=== PATIENT | female | born 1970 | race Hispanic/Latino ===

== ENCOUNTER 2017-05-19 05:52 | Inpatient (IN) | payer MEDICAID ==
[2017-05-14 10:55] VITALS: BMI 29.1
[2017-05-19] MEDS ORDERED: Lactated Ringer's 1,000 ML IV ONE ×2 (06:50→09:30)
[2017-05-19] MEDS ORDERED: Midazolam 2 MG/2 ML VIAL ONE (07:45)
[2017-05-19] MEDS ORDERED: Propofol 10 mg/ml Inj (20 ML) ONE (07:45)
[2017-05-19] MEDS ORDERED: Rocuronium 10 mg/ml (5 ml) ONE (07:46)
[2017-05-19] MEDS ORDERED: HYDROmorphone 0.5 mg/0.5 ml ISec IVP PRN (08:06)
[2017-05-19] MEDS ORDERED: Vasopressin 20 Units/ml Inj ONE (08:08)
--- NOTE | 2017-05-19 08:12 | CP.PCM.HP ---
History of Present Illness - History of Present Illness History of Present Illness: 47yo female with long history of symptomatic fibroid uterus. Uterus ~26-28wk size. After office evaluation and discussion of options, patient opting for removal of uterus. Discussed with patient the R/B/A of surgery and patient consented for STONE. All patient questions answered. Pt without complaints at this time. Present on Admission - Present on Admission Any Indicators Present on Admission: No History of DVT/PE: No History of Uncontrolled Diabetes: No Urinary Catheter: No Decubitus Ulcer Present: No Past Patient History - Past Medical History & Family History Past Medical History?: Yes - Past Social History Smoking Status: Never Smoked - CARDIAC Hx Cardiac Disorders: No - PULMONARY Hx Respiratory Disorders: No - NEUROLOGICAL Hx Neurological Disorder: No - HEENT Hx HEENT Problems: No - RENAL Hx Chronic Kidney Disease: No - ENDOCRINE/METABOLIC Hx Endocrine Disorders: Yes Hx Hypothyroidism: Yes - HEMATOLOGICAL/ONCOLOGICAL Hx Blood Disorders: Yes Hx Anemia: Yes - INTEGUMENTARY Hx Dermatological Problems: No - MUSCULOSKELETAL/RHEUMATOLOGICAL Hx Musculoskeletal Disorders: No - GASTROINTESTINAL Hx Gastrointestinal Disorders: Yes Hx Gastritis: Yes - GENITOURINARY/GYNECOLOGICAL Hx Genitourinary Disorders: No - PSYCHIATRIC Hx Psychophysiologic Disorder: No - SURGICAL HISTORY Hx Surgeries: No - ANESTHESIA Hx Anesthesia: No Hx Anesthesia Reactions: No Hx Malignant Hyperthermia: No Has any member of the family had a problem w/ anesthesia?: No Meds Allergies/Adverse Reactions: Allergies Allergy/AdvReac Type Severity Reaction Status Date / Time No Known Allergies Allergy Verified 05/14/17 09:08 Physical Exam - Constitutional Appears: Well, No Acute Distress - Head Exam Head Exam: ATRAUMATIC - Eye Exam Eye Exam: Normal appearance, PERRL - ENT Exam ENT Exam: Mucous Membranes Moist - Neck Exam Neck exam: Positive for: Normal Inspection - Respiratory Exam Respiratory Exam: Clear to Auscultation Bilateral, NORMAL BREATHING PATTERN - Cardiovascular Exam Cardiovascular Exam: REGULAR RHYTHM - GI/Abdominal Exam GI & Abdominal Exam: Normal Bowel Sounds Additional comments: Soft/NT/ND. Uterus palpable above umbilicus. - Extremities Exam Extremities exam: Positive for: normal inspection. Negative for: calf tenderness, pedal edema Results - Vital Signs Recent Vital Signs: Last Vital Signs Temp 98.5 F 05/19/17 06:25 Pulse 61 05/19/17 06:28 Resp 18 05/19/17 06:25 BP 134/51 L 05/19/17 06:25 Pulse Ox 99 05/19/17 06:25 - Imaging and Cardiology Venous US Status: Image reviewed by me, Report reviewed by me Assessment & Plan - Assessment and Plan (Free Text) Assessment: Symptomatic fibroid uterus Plan: As Above. Routine postop observation and care. - Date & Time Date: 05/19/17 Time: 08:13
[2017-05-19] MEDS ORDERED: Dexamethasone 4 mg/1 ml ONE (08:31)
[2017-05-19] MEDS ORDERED: ePHEDrine 50 mg/ml Inj ONE (08:41)
[2017-05-19] MEDS ORDERED: Neostigmine Methylsulfate 3mg/3ml Syringe IV ONE (08:44)
[2017-05-19] MEDS ORDERED: Neostigmine Methylsulfate 2 MG/2 ML ML IV ONE (08:44)
--- NOTE | 2017-05-19 10:44 | PCM.SURG1 ---
Surgeon's Initial Post Op Note - Surgeon's Notes Surgeon: Dr. Felder Manager Talent Management: Pj Rose PGY2 Type of Anesthesia: General Endo Pre-Operative Diagnosis: Uterine Fibroids Operative Findings: Large uterin fibroid Post-Operative Diagnosis: Same Operation Performed: Total abdominal hysterectomy, b/l salphingectomy Specimen/Specimens Removed: Uterus, fibroids, cervix, fallopean tubes b/l Estimated Blood Loss: EBL {In ML}: 100 Blood Products Given: N/A Drains Used: No Drains Post-Op Condition: Good Date of Surgery/Procedure: 05/19/17 Time of Surgery/Procedure: 10:45
[2017-05-19] MEDS: HYDROmorphone 0.5 mg/0.5 ml ISec IVP PRN ×5 (10:45→12:36)
[2017-05-19] MEDS: Lactated Ringer's 1,000 ML IV SCH ×2 (14:34→21:56)
[2017-05-19] MEDS: Oxycodone/Acetaminophen 5/325 mg Tab PO PRN ×2 (17:54→21:54)
--- NOTE | 2017-05-20 02:00 | OP ---
PROCEDURE DATE: 05/19/2017 PREOPERATIVE DIAGNOSIS: Symptomatic fibroid uterus. POSTOPERATIVE DIAGNOSIS: Symptomatic fibroid uterus. OPERATION PERFORMED: Total abdominal hysterectomy, bilateral salpingectomy. OPERATIVE FINDINGS: Fibroid uterus approximately 24 to 20 weeks size, normal tubes and ovaries bilaterally. SURGEON: Hira Felder MD. BATTERY CHARGER TESTER: Dr. Sunita Calix. Dr. Calix was present from the beginning of the procedure to the end of procedure. Dr. Calix was integral in exposing the surgical field, and controlling intraoperative bleeding, and surgical removal of the uterus. ANESTHESIA: General. ANESTHESIOLOGIST: Dr. Pikcett. ESTIMATED BLOOD LOSS: 200 mL. FLUIDS: 1200 mL Lactated Ringer's. URINE OUTPUT: 150 mL of clear urine at the end of procedure. PROCEDURE PERFORMED: The patient was taken to the operating room, where general anesthesia was found to be adequate. The patient was prepped and draped in normal sterile fashion in the dorsal lithotomy position. A Pfannenstiel skin incision was made with scalpel. This was carried down through to the underlying layer of fascia with the scalpel. Midline dissection was made in fascial layer with the scalpel. The fascial incision was then extended bilaterally with curved Grider scissors. The fascial layer was from the underlying rectus muscles both bluntly and sharply with curved Grider scissors. The rectus muscles were at the midline. The peritoneum was then identified, tented up with Stella clamps x2, entered sharply with Metzenbaum scissors. This peritoneal incision was then extended superiorly and inferiorly with the good visualization of the urinary bladder. The abdomen and pelvis were explored and the above findings noted. The uterus was exteriorized. The round ligaments were isolated bilaterally, electrocauterized and transected with LigaSure device bilaterally. The anterior surface of the broad ligament was sharply dissected off the anterior surface of the uterus. The fallopian tubes and suspensory ligaments of the ovaries were isolated bilaterally, electrocauterized and transected bilaterally. The uterine arteries were skeletonized and isolated bilaterally, clamped with Susan clamps x2 bilaterally, transected bilaterally, suture ligated with 0 Vicryl x2 bilaterally. A releasing bite to remove the cardinal ligament was performed on the uterus bilaterally. Phaneuf clamp was placed on the cervix bilaterally, the ligament was transected off the cervix bilaterally, suture ligated with 0 Vicryl bilaterally. The cervix was clamped with Susan clamps bilaterally, and the cervix was removed from the posterior aspect of the vagina. The specimen was sent to pathology. The vaginal cuff was suture ligated with a series of [id number] stitches with 0 Vicryl. The fallopian tubes were removed from the ovaries bilaterally. This was completed with LigaSure device via electrocautery and transection. The fallopian tubes were sent as well to pathology. The abdomen and pelvis were irrigated with copious amounts of warm normal saline. Reinspection of all surgical pedicles proved hemostasis. All instruments were removed from the patient. The peritoneal layer was closed with a running stitch of 2-0 chromic. The rectus muscles were reapproximated with a running stitch of 2-0 chromic. The fascial layer was closed with a running stitch of 0 Vicryl. Subcutaneous tissue was closed with a running stitch of 3-0 plain. The skin was closed with subcutaneous stitch of 3-0 Vicryl. The patient tolerated the procedure well. All sponge, lap, and needle counts were correct x2. The patient was given 2 g of Ancef just prior to the beginning of the procedure. There were no complications. The patient was taken to recovery room in awake and stable condition. Hira Felder MD cc:
[2017-05-20] MEDS: Oxycodone/Acetaminophen 5/325 mg Tab PO PRN ×4 (03:37→22:14)
[2017-05-20] MEDS: Lactated Ringer's 1,000 ML IV SCH ×2 (06:12→20:08)
[2017-05-20 08:00] LABS: BASO % 0.2 % (0.0-2.0); EOS % 0.2 % (0.0-4.0); HEMATOCRIT 30.2 % (34.0-47.0); LYMPH # 1.8 K/uL (1.0-4.3); LYMPH % 21.1 % (20.0-40.0); MEAN CELL VOLUME 80.1 fl (81.0-99.0); MEAN CORPUSCULAR HEMOGLOBIN 25.8 pg (27.0-31.0); MEAN CORPUSCULAR HGB CONC 32.3 g/dL (33.0-37.0); MEAN PLATELET VOLUME 7.7 fl (7.2-11.7); MONO # 0.7 K/uL (0.0-0.8); MONO % 8.2 % (0.0-10.0); NEUT # 6.1 K/uL (1.8-7.0); NEUT % 70.3 % (50.0-75.0); RED CELL DISTRIBUTION WIDTH 23.5 % (11.5-14.5); WHITE BLOOD COUNT 8.7 K/uL (4.8-10.8)
[2017-05-20] MEDS: Enoxaparin 40 mg Syringe SC SCH (09:05)
[2017-05-20] MEDS: Levothyroxine 50 MCG TAB PO SCH (15:20)
--- NOTE | 2017-05-20 16:27 | CP.PCM.PN ---
Subjective - Date & Time of Evaluation Date of Evaluation: 05/20/17 Time of Evaluation: 16:24 - Subjective Subjective: Patient without complaints. Patient reports pain well controlled. Patient denies any nausea or vomiting, chest pain or shortness of breath, fevers or chills. Patient tolerating small amounts of solid foods. Patient reports urinating without complications.. Objective - Vital Signs/Intake and Output Vital Signs (last 24 hours): Temp Pulse Resp BP Pulse Ox 98.6 F 60 20 127/58 L 97 05/20/17 15:58 05/20/17 15:58 05/20/17 15:58 05/20/17 15:58 05/20/17 15:58 Intake and Output: 05/20/17 05/20/17 06:59 18:59 Intake Total 2000 Output Total 2380 Balance -380 - Medications Medications: Current Medications Cholecalciferol (Vitamin D) 1,000 iu PO DAILY [facility] Enoxaparin Sodium (Lovenox) 40 mg SC DAILY [facility] PRN Reason: Protocol Last Admin: 05/20/17 09:05 Dose: 40 mg Ferrous Sulfate (Feosol) 325 mg PO DAILY@1500 PAULIE Last Admin: 05/20/17 15:20 Dose: 325 mg Home Med (Cyanocobalamin [Vitamin B12 100 Mcg Tab]) 100 mcg PO DAILY [facility] Lactated Ringer's (Lactated Ringer's) 1,000 mls @ 55 mls/hr IV .[id number] [facility] Lactated Ringer's (Lactated Ringer's) 1,000 mls @ 125 mls/hr IV .Q8H [facility] Last Admin: 05/20/17 06:12 Dose: 125 mls/hr Ibuprofen (Motrin Tab) 600 mg PO Q6 PRN PRN Reason: Pain, moderate (4-7) Last Admin: 05/20/17 06:07 Dose: 600 mg Levothyroxine Sodium (Synthroid) 50 mcg PO ACB [facility] Last Admin: 05/20/17 15:20 Dose: 50 mcg Ondansetron HCl (Zofran Inj) 4 mg IVP ONCE PRN PRN Reason: Nausea/Vomiting Oxycodone/Acetaminophen (Percocet 5/325 Mg Tab) 2 tab PO Q4 PRN PRN Reason: Pain, severe (8-10) Stop: 08/25/17 10:39 Last Admin: 05/20/17 10:37 Dose: 2 tab - Labs Labs: 05/20/17 07:00 - Constitutional Appears: Well, No Acute Distress - Head Exam Head Exam: ATRAUMATIC - ENT Exam ENT Exam: Mucous Membranes Moist - GI/Abdominal Exam Additional comments: Abdomen soft, nontender, nondistended. Incision clean, dry, intact. No erythema, swelling, induration Assessment and Plan - Assessment and Plan (Free Text) Assessment: Postop day #1 status post total abdominal hysterectomy, bilateral salpingectomy. Patient recovering well Plan: Pain control Out of bed, ambulate Adame out, which check Incentive spirometer Venodyne's while in bed, Lovenox for DVT prophylaxis Advance diet as tolerated
[2017-05-21] MEDS: Lactated Ringer's 1,000 ML IV SCH ×2 (03:54→04:30)
[2017-05-21] MEDS: Levothyroxine 50 MCG TAB PO SCH (06:55)
--- NOTE | 2017-05-21 09:26 | CP.PCM.PN ---
Subjective - Date & Time of Evaluation Date of Evaluation: 05/21/17 Time of Evaluation: 09:24 - Subjective Subjective: Pt without complaints. Pain well controlled. Ambulating well. Tolerating regular diet. Voiding without problems. Objective - Vital Signs/Intake and Output Vital Signs (last 24 hours): Temp Pulse Resp BP Pulse Ox 99 F 63 20 108/60 97 05/21/17 05:00 05/21/17 05:00 05/21/17 05:00 05/21/17 05:00 05/21/17 05:00 Intake and Output: 05/21/17 05/21/17 06:59 18:59 Intake Total 1700 Output Total 0 Balance 1700 - Medications Medications: Current Medications Cholecalciferol (Vitamin D) 1,000 iu PO DAILY [facility] Enoxaparin Sodium (Lovenox) 40 mg SC DAILY [facility] PRN Reason: Protocol Last Admin: 05/20/17 09:05 Dose: 40 mg Ferrous Sulfate (Feosol) 325 mg PO DAILY@1500 PAULIE Last Admin: 05/20/17 15:20 Dose: 325 mg Home Med (Cyanocobalamin [Vitamin B12 100 Mcg Tab]) 100 mcg PO DAILY [facility] Lactated Ringer's (Lactated Ringer's) 1,000 mls @ 55 mls/hr IV .[id number] [facility] Last Admin: 05/20/17 20:08 Dose: 55 mls/hr Lactated Ringer's (Lactated Ringer's) 1,000 mls @ 125 mls/hr IV .Q8H [facility] Last Admin: 05/21/17 04:30 Dose: 125 mls/hr Ibuprofen (Motrin Tab) 600 mg PO Q6 PRN PRN Reason: Pain, moderate (4-7) Last Admin: 05/21/17 05:25 Dose: 600 mg Levothyroxine Sodium (Synthroid) 50 mcg PO ACB [facility] Last Admin: 05/21/17 06:55 Dose: 50 mcg Ondansetron HCl (Zofran Inj) 4 mg IVP ONCE PRN PRN Reason: Nausea/Vomiting Oxycodone/Acetaminophen (Percocet 5/325 Mg Tab) 2 tab PO Q4 PRN PRN Reason: Pain, severe (8-10) Stop: 05/22/17 10:39 Last Admin: 05/20/17 22:14 Dose: 2 tab - Labs Labs: 05/20/17 07:00 - Constitutional Appears: Well, No Acute Distress - Head Exam Head Exam: NORMAL INSPECTION - Eye Exam Eye Exam: Normal appearance, PERRL - ENT Exam ENT Exam: Mucous Membranes Moist - Respiratory Exam Respiratory Exam: Clear to Ausculation Bilateral, NORMAL BREATHING PATTERN - Cardiovascular Exam Cardiovascular Exam: REGULAR RHYTHM - GI/Abdominal Exam Additional comments: Soft/NT/ND, Inc C/D/I, no erythema, swelling, induration. Normal BS - Extremities Exam Extremities Exam: Normal Inspection. absent: Calf Tenderness, Pedal Edema Assessment and Plan - Assessment and Plan (Free Text) Assessment: POD #2 s/p STONE -- recovering well Plan: D/C home with postop instructions. F/U 1wk in office
--- NOTE | 2017-05-21 09:28 | CP.PCM.DIS ---
Provider - Provider Date of Admission: 05/19/17 10:38 Attending physician: Hira Felder MD Primary care physician: Cara Sinha MD Time Spent in preparation of Discharge (in minutes): 10 Diagnosis - Discharge Diagnosis (1) Fibroid uterus Status: Acute Hospital Course - Lab Results Lab Results: Most Recent Lab Values WBC 8.7 K/uL (4.8-10.8) D 05/20/17 07:00 RBC 3.77 Mil/uL (3.80-5.20) L 05/20/17 07:00 Hgb 9.7 g/dL (12.0-16.0) L 05/20/17 07:00 Hct 30.2 % (34.0-47.0) L 05/20/17 07:00 MCV 80.1 fl (81.0-99.0) L 05/20/17 07:00 MCH 25.8 pg (27.0-31.0) L 05/20/17 07:00 MCHC 32.3 g/dL (33.0-37.0) L 05/20/17 07:00 RDW 23.5 % (11.5-14.5) H 05/20/17 07:00 Plt Count 221 K/uL (130-400) 05/20/17 07:00 MPV 7.7 fl (7.2-11.7) 05/20/17 07:00 Neut % (Auto) 70.3 % (50.0-75.0) 05/20/17 07:00 Lymph % (Auto) 21.1 % (20.0-40.0) 05/20/17 07:00 Barnes % (Auto) 8.2 % (0.0-10.0) 05/20/17 07:00 Eos % (Auto) 0.2 % (0.0-4.0) 05/20/17 07:00 Baso % (Auto) 0.2 % (0.0-2.0) 05/20/17 07:00 Neut # 6.1 K/uL (1.8-7.0) 05/20/17 07:00 Lymph # 1.8 K/uL (1.0-4.3) 05/20/17 07:00 Barnes # 0.7 K/uL (0.0-0.8) 05/20/17 07:00 Eos # 0.0 K/uL (0.0-0.7) 05/20/17 07:00 Baso # 0.0 K/uL (0.0-0.2) 05/20/17 07:00 - Hospital Course Hospital Course: Admitted for STONE on 05/19/17. Normal postop course. Discharged on 05/21/17 Discharge Exam - Head Exam Head Exam: NORMAL INSPECTION Discharge Plan - Follow Up Plan Condition: GOOD Disposition: HOME/ ROUTINE Referrals: Cara Sinha MD [Primary Care Provider] -
[2017-05-21] MEDS: Enoxaparin 40 mg Syringe SC SCH (09:48)
[2017-05-21 13:59] VITALS: BP 112/65; PULSE 59; RESP 18; TEMP 97.9; O2SAT 99
== END 2017-05-21 11:35 | disposition home or self-care (01) | DRG 359 ==
LOC: H.OPSURG 05:52 → H.PEDS 10:38
PROVIDERS: ADMIT Obstetrics & Gynecology; ATTEND Obstetrics & Gynecology
PROC: 0UT70ZZ Resection of Bilateral Fallopian Tubes, Open Approach (ICD-10-PCS; 2017-05-19)
PROC: 0UTC0ZZ Resection of Cervix, Open Approach (ICD-10-PCS; 2017-05-19)
PROC: 0UT90ZZ Resection of Uterus, Open Approach (ICD-10-PCS; principal; 2017-05-19 07:45)
DX: D25.9 Leiomyoma of uterus, unspecified (principal); E03.9 Hypothyroidism, unspecified